=== PATIENT | female | born 1965 | race Caucasian/White ===

== ENCOUNTER → 2021-12-31 | Outpatient (CLI) | payer BC ==
--- NOTE | 2022-01-02 20:38 | XR ---
EXAMINATION TYPE: XR clavicle RT DATE OF EXAM: 12/31/2021 COMPARISON: None HISTORY: Weakness, pain TECHNIQUE: Two-view right clavicle FINDINGS: There is some acromioclavicular joint hypertrophy. No acute fractures or dislocations are e vident. Follow up exams can be performed 7-10 days from acute trauma for continued pain. IMPRESSION: 1. No acute osseous abnormality right clavicle. 2. Medial clavicular joint degenerative changes.
--- NOTE | 2022-01-02 20:39 | XR ---
EXAMINATION TYPE: XR shoulder complete RT DATE OF EXAM: 12/31/2021 COMPARISON: NONE HISTORY: Pain TECHNIQUE: Shoulder examined in 3 projections FINDINGS: The humeral head articulates with the glenoid. The acromio-clavicular junction has mild degenerative change. No acute fractures or dislocations are evident. A follow up study can be performed 7-10 days from acute trauma for continued pain. IMPRESSION: 1. No acute osseous abnormality right shoulder
== END | disposition home or self-care (01) ==
LOC: LABWHC1 15:18
PROVIDERS: ATTEND Psychiatry & Neurology Neurology
DX: M19.011 Primary osteoarthritis, right shoulder (principal)
CPT/HCPCS: 36415; 82550; 82607; 85652; 86038

== ENCOUNTER → 2022-01-07 | Outpatient (CLI) | payer BC ==
--- NOTE | 2022-01-07 08:04 | MR ---
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 FINDINGS: Diffusion weighted images demonstrate no evidence of a recent infarct or other diffusion ab normality. The ventricular system and cisternal spaces are normal in size and appearance. The brain volume is age appropriate. Occasional scattered foci of T2 hyperintensity seen throughout the white m atter bilaterally. Approximately 15 scattered small lesions are seen. Lesions are nonspecific in appe arance and distribution. Midline structures demonstrate normal morphology. The craniocervical junction appears within normal limits. Post contrast images demonstrate no abnormal enhancement. The dural venous sinuses appear pa tent. The visualized sinuses are clear and the globes are intact. Nasal septum is deviated to right o f midline. IMPRESSION: Mild nonspecific white matter changes. No abnormal enhancement or enhancing masses are se en.
== END | disposition home or self-care (01) ==
LOC: RADMRIMAIN 05:48
PROVIDERS: ATTEND Psychiatry & Neurology Neurology
DX: G52.9 Cranial nerve disorder, unspecified (principal)
CPT/HCPCS: 70553; A9585

== ENCOUNTER 2022-01-27 09:17 | Day surgery (SDC) | payer BC ==
[2022-01-26 11:18] VITALS: BMI 23.7
[~2022-01-27 09:17] MED LIST: LACTATED RINGERS 1,000 ML IV SCH
[2022-01-27 10:10] VITALS: TEMP 97.5
[2022-01-27 10:23] LABS: Glucose,Whole Blood 85 mg/dL (75-99)
[2022-01-27] MEDS ORDERED: MIDAZOLAM 2 MG/2 ML VIAL ONE (10:37)
[2022-01-27] MEDS ORDERED: fentaNYL (PF) 50 MCG/ML 2 ML AMP ONE (10:37)
--- NOTE | 2022-01-27 10:50 | P.PCN ---
Date of Procedure: 01/27/22 Procedure(s) Performed: Preoperative diagnosis: 1-crania nerve abnormalities. 2-white matter pathology. 3-dysphagia Post operative diagnoses: Same as preop diagnosis Procedure= lumbar puncture Anesthesia= moderate sedation with Versed 1 mg and fentanyl 50 g intravenously,and local infiltration with lidocaine 1% 2 mL. Condition: stable Complication: none. Description of the procedure procedure risk and benefits discussed with the patient and family, consent signed. Patient and the procedure area placed in sitting position , back prepped with chlorhexidine 3 times been local infiltration of the skin and subcutaneous tissue with lidocaine 1% 2 mL for skin and subcu interstitial frustrations at L4 5 levels then 22-gauge Quincke-type needle advanced slowly at L4- 5 interlaminar space there was positive cerebrospinal fluid which was clear, no heme, no paresthesia ,total of 8 ML of clear cerebrospinal fluid collected in 4 different tubes 2 mL in each, then the needle removed and a Band-Aid applied and patient tolerated the procedure well without any complications.
[2022-01-27] MEDS ORDERED: IV FLUID CONTINUATION 800 ML IV ONE (10:51)
[2022-01-27 11:09] VITALS: RESP 18
[2022-01-27 11:20] VITALS: BP 128/79; PULSE 68
[2022-01-27 12:54] LABS: Glucose,CSF 69 mg/dL (40-70); Total Protein,CSF 57 mg/dL (12-60)
[2022-01-27 13:46] LABS: Appearance,CSF Clear; CSF Tube Number 4; CSF Tube Volume 2.3; Nucleated Cells, CSF 1 u/L (0-5); Red Blood Cell,CSF 0 u/L (0-10)
== END 2022-01-27 12:50 | disposition home or self-care (01) ==
LOC: ORPAIN 09:17
PROVIDERS: ATTEND Specialist
DX: R13.10 Dysphagia, unspecified (principal); G52.7 Disorders of multiple cranial nerves
CPT/HCPCS: 88108; 84157; 82945; 89050; 87070; 87205; 62270; J2250; J3010

== ENCOUNTER → 2022-02-07 | Outpatient (CLI) | payer BC ==
[2022-02-07 23:09] LABS: Creatine Kinase 381 U/L (26-186)
== END | disposition home or self-care (01) ==
LOC: LABWHC1 15:57
PROVIDERS: ATTEND Psychiatry & Neurology Neurology
DX: Z01.812 Encounter for preprocedural laboratory examination (principal); G52.9 Cranial nerve disorder, unspecified; R47.02 Dysphasia
CPT/HCPCS: 36415; 82550; 86480; 86618

== ENCOUNTER → 2022-09-09 | Outpatient (CLI) | payer BC | END | disposition home or self-care (01) | LOC: LABWHC1 15:06 | PROVIDERS: ATTEND Otolaryngology | DX: Z01.812 Encounter for preprocedural laboratory examination (principal); Z20.822 Contact with and (suspected) exposure to COVID-19 | CPT/HCPCS: U0003; U0005 ==